=== PATIENT | male | born 1955 | race Caucasian/White ===

== ENCOUNTER 2020-05-03 21:32 | Emergency (ER) | payer OTHER, SELFPAY ==
--- NOTE | 2020-05-03 21:33 | XR_ITS ---
WS: [id number] PORTABLE CHEST HISTORY: cp COMPARISON: None available. Lungs are clear and well expanded. No pleural effusion or pneumothorax. Cardiac size: Normal. Mediastinum/Aorta: Normal mediastinum. No osseous abnormality seen. XR/XR chest 1V portable [id number] IMPRESSION: Unremarkable portable chest.
--- NOTE | 2020-05-03 21:33 | ECG_ITS ---
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
[2020-05-03 21:38] VITALS: BP 170/97; PULSE 62; RESP 19; TEMP 36.3; O2SAT 100; BMI 24.7
--- NOTE | 2020-05-03 21:52 | USR_ITS ---
PROCEDURE INFORMATION: Exam: US Abdomen, Limited; Right Upper Quadrant Exam date and time: 05/03/2020 10:15 PM Age: 64 years old Clinical indication: Abdominal pain; Epigastric; Additional info: Abd pain TECHNIQUE: Imaging protocol: US abdomen. Real time ultrasound with image documentation. Limited exam focused on the right upper quadrant. COMPARISON: No relevant prior studies available. FINDINGS: Liver: Anechoic thin walled cystic masses are seen within the liver compatible with simple cysts. Largest is seen in the right lobe measuring 2.3 x 3.1 x 2.8 cm. Gallbladder: Hyperechoic foci are seen within the dependent portion of the gallbladder compatible with small gallstones. There is no evidence for gallbladder wall thickening or pericholecystic fluid. Common bile duct: Normal. No stones. No dilation. Pancreas: Visualized pancreas is unremarkable. Right kidney: Normal. No mass. No hydronephrosis. US/US gall bladder 35304 IMPRESSION: 1. Cholelithiasis without evidence of cholecystitis. 2. Two benign hepatic cysts, the largest measuring up to 3.1 cm. No further workup needed.
--- NOTE | 2020-05-03 21:59 | W.ED.CHESTPA ---
HPI - Chest Pain General: Chief Complaint: Chest Pain Stated Complaint: tightness in chest/back pain Time Seen by Provider: 05/03/20 21:46 Source: patient Mode of arrival: ambulatory Limitations: no limitations History of Present Illness: HPI narrative: 64-year-old male states been having right upper quadrant abdominal pain over the last 3 hours. States it also radiates to his chest and his back. He states he had issues with his gallbladder in the past 8 large amount of meat today which is atypical for him states he started having severe pains. He states his pain is currently 9 out of 10. Denies any worsening or improving factors. Associated symptoms: Reports abdominal pain; Deny dyspnea or fever(s) Review of Systems Const: Denies: fever(s), chills, body aches or change in appetite Eyes: Denies: blurry vision or eye discomfort ENMT: Denies: throat pain or dental pain Card: Reports: chest pain Resp: Denies: dyspnea GI: Reports: abdominal pain : Denies: dysuria Musc: Denies: neck pain or back pain Skin/Breast: Denies: rash Neuro: Denies: headache(s) Psych: Denies: depression Jonn/Lymph: Denies: easy bruising All/Imm: Denies: urticaria Physical Exam Const: COMMON NORMALS: no acute distress, patient oriented x3 and healthy appearing HENMT: COMMON NORMALS: normocephalic and atraumatic HEAD & SCALP: normocephalic and atraumatic Eye: COMMON NORMALS: Equal, round and reactive pupils present and EOMs intact bilaterally PUPIL: Yes Equal, round and reactive pupils present Neck/C-Spine: COMMON NORMALS: full ROM and supple Chest: COMMONS NORMALS: normal inspection of the chest and normal palpation of entire chest wall Resp: COMMON NORMALS: normal respiratory effort, No retractions, No use of accessory muscles and clear to auscultation bilaterally AUSCULTATION: clear to auscultation bilaterally Cardio: COMMON NORMALS: regular rate, regular rhythm and No murmurs present (Cardio) RATE: regular rate RHYTHM: regular rhythm GI: COMMON NORMALS: Normal to inspection, nondistended, normoactive bowel sounds present, Soft to palpation and no masses PALPATION: Yes Soft to palpation and Yes Tenderness to palpation present (GI) Details: RUQ Extremity: COMMON NORMALS: normal to inspection and full ROM Neuro: COMMON NORMALS: patient oriented x3, moves all extremities and no focal motor deficits Psych: COMMON NORMALS: mental status grossly normal, Normal thought process present and cooperative THOUGHT PROCESS: Normal thought process present Skin: COMMON NORMALS: no rashes or lesions noted and no wounds GENERAL SKIN EXAM: no rashes or lesions noted Course Vital Signs: Vital signs: Vital Signs Temperature 97.4 F L 05/03/20 21:38 Pulse Rate 62 05/03/20 21:38 Respiratory Rate 19 H 05/03/20 22:19 Blood Pressure 170/97 05/03/20 21:38 Pulse Oximetry 100 05/03/20 22:19 MDM - Chest Pain MDM Narrative: Medical decision making narrative: Ean presents here with abdominal pain is likely gallbladder nature. He does have gallstones but no signs of cholecystitis. His pain is much improved here and his exam at discharge is benign. He does not have a surgical abdomen. He has no signs of abdominal aortic aneurysm or thoracic aneurysm. His EKG and troponin are normal. His pain is more abdominal not chest. He is to follow-up with surgeon when he gets back home. He is return if worsening. He understands agrees to plan. Lab Data: Labs: Lab Results 05/03/20 05/03/20 05/03/20 Range/Units 22:16 22:16 22:16 WBC 14.7 H (4.0-10.0) 10^3/ uL RBC 4.97 (4.1-5.3) 10^6/u L Hgb 15.3 (11.7-16.6) g/dL Hct 43.4 (42.0-52.0) % MCV 87.3 (80-94) fL MCH 30.8 (28.0-34.0) pg MCHC 35.3 (30.0-36.0) g/dL RDW 12.0 L (12.1-15.1) % Plt Count 244 (130-400) 10^3/c mm MPV 9.6 (7.4-10.4) fL Neut % (Auto) 87.7 % Lymph % (Auto) 7.6 % [place] % (Auto) 3.3 % Eos % (Auto) 0.4 % Baso % (Auto) 0.5 % Neut # (Auto) 12.92 H (1.8-7.7) 10^3/u L Lymph # (Auto) 1.1 (0.8-4.8) 10^3/u L [place] # (Auto) 0.5 (0.2-0.9) 10^3/u L Eos # (Auto) 0.1 (0.0-0.8) 10^3/u L Baso # (Auto) 0.1 (0.0-0.1) 10^3/u L Nucleated RBC % (a uto) 0 % Nucleated RBCs # 0.0 /100WBC Sodium 139 (136-145) mmol/L Potassium 3.6 (3.5-5.1) mmol/L Chloride 101 (98-107) mmol/L Carbon Dioxide 24 (22-29) mmol/L Anion Gap 17.6 (5-19) BUN 27 H (8-23) mg/dL Creatinine 1.3 H (0.7-1.2) mg/dL GFR Calculation 55.8 L (90-130) mL/min Glucose 170 H (65-115) mg/dL Calculated Osmolal ity 297 H (285-295) mOsm/k g Calcium 9.8 (8.5-10.5) mg/dL Total Bilirubin 0.4 (0.15-1.2) mg/dL AST 19 (0-40) U/L ALT 28 (0-41) U/L Alkaline Phosphata se 72 (40-130) IU/L Troponin T Baselin e 6 (0-15) ng/L Total Protein 6.9 (6.6-8.7) g/dL Albumin 5.0 (3.5-5.2) g/dL Globulin 1.9 (1.3-4.6) g/dL Lipase 38 (13-60) U/L Imaging Data^: CXR: Attestation: I personally reviewed and interpreted this imaging study as follows: My impression: no acute abnormality US: Radiologist's impression: [address] [address] Ultrasound Report Signed Patient: Ean Vieira Unit #: [id number] : 1955 Age/Sex: 64 / M ADM Date: 05/03/20 Loc: ER Room/Bed: Attending Dr: Ordering Provider/Ordering MD: Xochilt Alvarez MD Date of Service: 05/03/20 Procedure(s): US gall bladder 35599 Accession Number(s): [id number] Report Number: [id number] PROCEDURE INFORMATION: Exam: US Abdomen, Limited; Right Upper Quadrant Exam date and time: 05/03/2020 10:15 PM Age: 64 years old Clinical indication: Abdominal pain; Epigastric; Additional info: Abd pain TECHNIQUE: Imaging protocol: US abdomen. Real time ultrasound with image documentation. Limited exam focused on the right upper quadrant. COMPARISON: No relevant prior studies available. FINDINGS: Liver: Anechoic thin walled cystic masses are seen within the liver compatible with simple cysts. Largest is seen in the right lobe measuring 2.3 x 3.1 x 2.8 cm. Gallbladder: Hyperechoic foci are seen within the dependent portion of the gallbladder compatible with small gallstones. There is no evidence for gallbladder wall thickening or pericholecystic fluid. Common bile duct: Normal. No stones. No dilation. Pancreas: Visualized pancreas is unremarkable. Right kidney: Normal. No mass. No hydronephrosis. US/US gall bladder [id number] IMPRESSION: 1. Cholelithiasis without evidence of cholecystitis. 2. Two benign hepatic cysts, the largest measuring up to 3.1 cm. No further workup needed. EKG Data^: EKG 1: Attestation: I personally reviewed and interpreted this EKG as follows: EKG interpretation date: 05/03/20 EKG interpretation time: 22:07 Interpretation: nsr hr [address] or t wave abnormalities qrs 106 qtc 407 Discharge Plan Discharge Patient Disposition: Home Clinical Impression: Abdominal pain Qualifiers: Abdominal location: right upper quadrant Qualified Code(s): R10.11 - Right upper quadrant pain Cholelithiasis Qualifiers: Cholelithiasis location: other site Condition: Stable Prescriptions: [place] 5-325 mg tablet 1 tab PO Q6H PRN (Reason: pain) Qty: 14 RF: 0 ondansetron 4 mg tablet,disintegrating 4 mg PO Q6H PRN (Reason: nausea and vomiting) Qty: 14 RF: 0 Discharge Orders: Discharge Order (Routine); Ordered 05/03/20 Ordered By: Xochilt Alvarez Discharge Diet: Advance as tolerated Discharge Activity: Resume usual activity Patient Instructions: Abdominal Pain (ED) Coding Level of Care Code ED Deposit Refund Clerk for Leeann Fwd Exam Comprehensive
[2020-05-03 22:19] VITALS: RESP 19; O2SAT 100
[2020-05-03] MEDS: morphine 4 mg/mL SDV 1 mL IVP (22:19)
[2020-05-03] MEDS: ondansetron 2 mg/ML SDV 2 mL 4 MG IVP (22:19)
[2020-05-03 22:24] LABS: Basophils # 0.1 10^3/uL (0.0-0.1); Basophils % 0.5 %; Eosinophils # 0.1 10^3/uL (0.0-0.8); Eosinophils % 0.4 %; Hematocrit 43.4 % (42.0-52.0); Hemoglobin 15.3 g/dL (11.7-16.6); Lymphocytes # 1.1 10^3/uL (0.8-4.8); Lymphocytes % 7.6 %; Mean Corpuscular HGB Conc 35.3 g/dL (30.0-36.0); Mean Corpuscular Hemoglobin 30.8 pg (28.0-34.0); Mean Corpuscular Volume 87.3 fL (80-94); Mean Platelet Volume 9.6 fL (7.4-10.4); Monocytes # 0.5 10^3/uL (0.2-0.9); Monocytes % 3.3 %; Neutrophils # 12.92 10^3/uL (1.8-7.7); Neutrophils % 87.7 %; Nucleated Red Blood Cells % 0 %; Platelet Count 244 10^3/cmm (130-400); Red Blood Count 4.97 10^6/uL (4.1-5.3); White Blood Count 14.7 10^3/uL (4.0-10.0)
[2020-05-03 22:43] LABS: Alanine Aminotransferase 28 U/L (0-41); Alkaline Phosphatase 72 IU/L (40-130); Aspartate Amino Transferase 19 U/L (0-40); Blood Urea Nitrogen 27 mg/dL (8-23); Calcium 9.8 mg/dL (8.5-10.5); Carbon Dioxide 24 mmol/L (22-29); Chloride 101 mmol/L (98-107); Globulin 1.9 g/dL (1.3-4.6); Glomerular Filtration Rate 55.8 mL/min (90-130); Glucose 170 mg/dL (65-115); Lipase 38 U/L (13-60); Osmolality Calculated 297 mOsm/kg (285-295); Sodium 139 mmol/L (136-145); Total Bilirubin 0.4 mg/dL (0.15-1.2); Total Protein 6.9 g/dL (6.6-8.7)
[2020-05-03 22:44] LABS: Anion Gap 17.6 (5-19); Potassium 3.6 mmol/L (3.5-5.1)
[2020-05-03 22:46] LABS: Troponin(5th) Baseline 6 ng/L (0-15)
[2020-05-03] MEDS: HYDROcodone-acetaminophen 5-325 mg Tablet 1 TAB PO (23:25)
[2020-05-03 23:38] VITALS: BP 154/90; PULSE 64; RESP 22; O2SAT 97
--- NOTE | 2020-05-03 23:39 | PC.NURSE ---
i agree with this assessment
== END 2020-05-03 23:39 | disposition home or self-care (01) ==
PROVIDERS: Emergency Provider Emergency Medicine
DX: K80.20 Calculus of gallbladder without cholecystitis without obstruction (principal)
CPT/HCPCS: 12345; 71045; 76705; 80053; 83690; 84484; 85025; 93005; 96374; 96375; 99282; 99284; J2270; J2405